=== PATIENT | female | born 1995 | race Caucasian/White ===

== ENCOUNTER 2018-02-17 02:07 | Observation (INO) | payer MEDICAID ==
--- NOTE | 2018-02-17 02:58 | ER Document Report ---
ED General - General Chief Complaint: Overdose Stated Complaint: POSSIBLE OVERDOSE Time Seen by Provider: 02/17/18 02:22 TRAVEL OUTSIDE OF THE [place] IN LAST 30 DAYS: No - HPI Notes: Patient is a 22-year-old female that presents to the emergency department for chief complaint of altered mental status. Patient was brought in by EMS after responding to Narcan. Her boyfriend called EMS when he found her unresponsive in the bed. He states that they "smoke something". Patient was apneic and cyanotic when EMS arrived. She did receive [id number] ventilation as well as 8 mg of intranasal Narcan. Patient woke up and began breathing after receiving Narcan. During my evaluation she is not cooperative. She will shake her head yes and no on occasion answer questions. She states she does not remember what happened. She denies using any drugs or history of drug use. She denies suicide attempt. Past Medical History: Reviewed in chart Past Surgical History: Reviewed in chart Social History: Reviewed in chart Family History: Reviewed and noncontributory for presenting illness Allergies: Reviewed, see documented allergy list. REVIEW OF SYSTEMS: Unable to obtain complete review of systems because of patient's current mental status and unwillingness to communicate PHYSICAL EXAMINATION: Vital signs reviewed, nursing noted reviewed. GENERAL: Somnolent, well-nourished and in no acute distress. HEAD: Atraumatic, normocephalic. EYES: Eyes appear normal, extraocular movements intact, sclera anicteric, conjunctiva are normal. ENT: nares patent, oropharynx clear without exudates. Moist mucous membranes. NECK: Normal range of motion, supple without lymphadenopathy LUNGS: Breath sounds clear to auscultation bilaterally and equal. No wheezes rales or rhonchi. HEART: Regular rate and rhythm without murmurs ABDOMEN: Soft, nontender, normoactive bowel sounds. No rebound, guarding, or rigidity. No masses appreciated. EXTREMITIES: Nontender, good range of motion, no pitting or edema. NEUROLOGICAL: No focal neurological deficits. Moves all extremities spontaneously Motor and sensory grossly intact on exam. PSYCH: Withdrawn, flat affect SKIN: Warm, Dry, normal turgor, no rashes or lesions noted on exposed skin - Related Data Allergies/Adverse Reactions: No Known Allergies Allergy (Verified 06/28/15 10:35) Past Medical History - Social History Smoking Status: Never Smoker Family History: Reviewed & Not Pertinent Pulmonary Medical History: Reports: Hx Asthma Psychiatric Medical History: Reports: Hx Bipolar Disorder, Hx Depression Past Surgical History: Reports: Hx Section - Immunizations Immunizations up to date: Yes Hx Diphtheria, Pertussis, Tetanus Vaccination: Yes Physical Exam - Vital signs Vitals: Pulse Ox 98 02/17/18 03:06 Course - Re-evaluation Re-evalutation: 02/17/18 02:58 Vitals reviewed. Nursing notes reviewed. 02/17/18 05:49 Patient reevaluated and has significantly improved. EMS reported her blood glucose is 349 however on a recheck she was 54. After receiving D50 patient's mentation did improve. She has a family history of diabetes but no personal history of diabetes. She denies taking any medications which may have lowered her blood glucose. Patient has a significant leukocytosis of 30. Chest x-ray is unremarkable. CT brain is normal. Her urinalysis shows a borderline infection and she will be given Rocephin for possible UTI. Urine culture was sent. Blood cultures have been obtained. She has a normal lactic acid. Patient is now admitting to smoking which she believed was marijuana. She received the drugs from her boyfriend who states he got them from someone new. She denies any known ingestion of opiates or history of opiate abuse. She denies any suicidal ideation or attempt. She has no complaints currently. Patient has continued to be tachycardic. She will be admitted to the hospital for her hypoglycemia, leukocytosis and mental status alterations. Case discussed with Dr. Mack who accepts admission. She is in agreement with this plan. Laboratory 02/17/18 02/17/18 02/17/18 03:12 03:12 03:22 WBC 30.1 H* RBC 4.29 Hgb 12.3 Hct 37.4 MCV 87 MCH 28.8 MCHC 33.0 RDW 13.5 Plt Count 289 Total Counted 100 Seg Neutrophils % Not Reportable Seg Neuts % (Manual) 91 H Lymphocytes % Not Reportable Lymphocytes % (Manual) 6 L Monocytes % Not Reportable Monocytes % (Manual) 3 Eosinophils % Not Reportable Eosinophils % (Manual) 0 Basophils % Not Reportable Basophils % (Manual) 0 Absolute Neutrophils Not Reportable Abs Neuts (Manual) 27.4 H Absolute Lymphocytes Not Reportable Abs Lymphs (Manual) 1.8 Absolute Monocytes Not Reportable Abs Monocytes (Manual) 0.9 Absolute Eosinophils Not Reportable Absolute Eos (Manual) 0.0 Absolute Basophils Not Reportable Abs Basophils (Manual) 0.0 Platelet Comment ADEQUATE RBC Morph Comment NORMO-CYTIC/CHROMIC Carbonic Acid HCO3/H2CO3 Ratio ABG pH ABG pCO2 ABG pO2 ABG HCO3 ABG Total CO2 ABG O2 Saturation ABG Base Excess FiO2 Sodium 141.0 Potassium 4.4 Chloride 105 Carbon Dioxide 27 Anion Gap 9 BUN 14 Creatinine 0.99 Est GFR ( Amer) > 60 Est GFR (Non-Af Amer) > 60 Glucose 98 POC Glucose Lactic Acid Calcium 8.6 Total Bilirubin 0.3 Direct Bilirubin 0.3 Neonat Total Bilirubin Not Reportable Neonat Direct Bilirubin Not Reportable Neonat Indirect Bili Not Reportable AST 51 H ALT 29 Alkaline Phosphatase 68 Total Protein 6.9 Albumin 4.0 Urine Color Urine Appearance Urine pH Ur Specific [place] Urine Protein Urine Glucose (UA) Urine Ketones Urine Blood Urine Nitrite Urine Bilirubin Urine Urobilinogen Ur Leukocyte Esterase Urine WBC (Auto) Urine RBC (Auto) U Hyaline Cast (Auto) Urine Bacteria (Auto) Squamous Epi Cells Auto Urine Mucus (Auto) Urine Ascorbic Acid Urine HCG, Qual Urine Opiates Screen UNCONFIRMED POSITIVE Urine Methadone Screen NEGATIVE Ur Barbiturates Screen NEGATIVE Ur Phencyclidine Scrn NEGATIVE Ur Amphetamines Screen NEGATIVE U Benzodiazepines Scrn NEGATIVE Urine Cocaine Screen NEGATIVE U Marijuana (THC) Screen NEGATIVE Serum Alcohol < 10 02/17/18 02/17/18 02/17/18 03:22 04:37 04:37 WBC RBC Hgb Hct MCV MCH MCHC RDW Plt Count Total Counted Seg Neutrophils % Seg Neuts % (Manual) Lymphocytes % Lymphocytes % (Manual) Monocytes % Monocytes % (Manual) Eosinophils % Eosinophils % (Manual) Basophils % Basophils % (Manual) Absolute Neutrophils Abs Neuts (Manual) Absolute Lymphocytes Abs Lymphs (Manual) Absolute Monocytes Abs Monocytes (Manual) Absolute Eosinophils Absolute Eos (Manual) Absolute Basophils Abs Basophils (Manual) Platelet Comment RBC Morph Comment Carbonic Acid 1.32 HCO3/H2CO3 Ratio 17:1 ABG pH 7.35 ABG pCO2 43.8 ABG pO2 85.9 ABG HCO3 23.7 ABG Total CO2 25.0 ABG O2 Saturation 96.1 ABG Base Excess -1.9 FiO2 ROOM AIR Sodium Potassium Chloride Carbon Dioxide Anion Gap BUN Creatinine Est GFR ( Amer) Est GFR (Non-Af Amer) Glucose POC Glucose Lactic Acid 1.2 Calcium Total Bilirubin Direct Bilirubin Neonat Total Bilirubin Neonat Direct Bilirubin Neonat Indirect Bili AST ALT Alkaline Phosphatase Total Protein Albumin Urine Color YELLOW Urine Appearance CLOUDY Urine pH 5.0 Ur Specific [place] 1.012 Urine Protein NEGATIVE Urine Glucose (UA) >=500 H Urine Ketones NEGATIVE Urine Blood NEGATIVE Urine Nitrite NEGATIVE Urine Bilirubin NEGATIVE Urine Urobilinogen NEGATIVE Ur Leukocyte Esterase TRACE H Urine WBC (Auto) 8 Urine RBC (Auto) 1 U Hyaline Cast (Auto) 4 Urine Bacteria (Auto) 1+ Squamous Epi Cells Auto 3 Urine Mucus (Auto) MANY Urine Ascorbic Acid NEGATIVE Urine HCG, Qual NEGATIVE Urine Opiates Screen Urine Methadone Screen Ur Barbiturates Screen Ur Phencyclidine Scrn Ur Amphetamines Screen U Benzodiazepines Scrn Urine Cocaine Screen U Marijuana (THC) Screen Serum Alcohol 02/17/18 04:48 WBC RBC Hgb Hct MCV MCH MCHC RDW Plt Count Total Counted Seg Neutrophils % Seg Neuts % (Manual) Lymphocytes % Lymphocytes % (Manual) Monocytes % Monocytes % (Manual) Eosinophils % Eosinophils % (Manual) Basophils % Basophils % (Manual) Absolute Neutrophils Abs Neuts (Manual) Absolute Lymphocytes Abs Lymphs (Manual) Absolute Monocytes Abs Monocytes (Manual) Absolute Eosinophils Absolute Eos (Manual) Absolute Basophils Abs Basophils (Manual) Platelet Comment RBC Morph Comment Carbonic Acid HCO3/H2CO3 Ratio ABG pH ABG pCO2 ABG pO2 ABG HCO3 ABG Total CO2 ABG O2 Saturation ABG Base Excess FiO2 Sodium Potassium Chloride Carbon Dioxide Anion Gap BUN Creatinine Est GFR ( Amer) Est GFR (Non-Af Amer) Glucose POC Glucose 59 L Lactic Acid Calcium Total Bilirubin Direct Bilirubin Neonat Total Bilirubin Neonat Direct Bilirubin Neonat Indirect Bili AST ALT Alkaline Phosphatase Total Protein Albumin Urine Color Urine Appearance Urine pH Ur Specific [place] Urine Protein Urine Glucose (UA) Urine Ketones Urine Blood Urine Nitrite Urine Bilirubin Urine Urobilinogen Ur Leukocyte Esterase Urine WBC (Auto) Urine RBC (Auto) U Hyaline Cast (Auto) Urine Bacteria (Auto) Squamous Epi Cells Auto Urine Mucus (Auto) Urine Ascorbic Acid Urine HCG, Qual Urine Opiates Screen Urine Methadone Screen Ur Barbiturates Screen Ur Phencyclidine Scrn Ur Amphetamines Screen U Benzodiazepines Scrn Urine Cocaine Screen U Marijuana (THC) Screen Serum Alcohol Chest X-Ray 02/17/18 02:41 IMPRESSION: Clear lungs. Head CT 02/17/18 02:41 IMPRESSION: No acute findings. - Vital Signs Vital signs: Temp Pulse Resp BP Pulse Ox 11 L 112/59 L 100 02/17/18 05:31 02/17/18 05:31 02/17/18 05:01 - Laboratory Result Diagrams: 02/17/18 03:12 02/17/18 03:12 Laboratory results interpreted by me: 02/17/18 02/17/18 02/17/18 03:12 03:12 03:22 WBC 30.1 H* Seg Neuts % (Manual) 91 H Lymphocytes % (Manual) 6 L Abs Neuts (Manual) 27.4 H POC Glucose AST 51 H Urine Glucose (UA) >=500 H Ur Leukocyte Esterase TRACE H 02/17/18 04:48 WBC Seg Neuts % (Manual) Lymphocytes % (Manual) Abs Neuts (Manual) POC Glucose 59 L AST Urine Glucose (UA) Ur Leukocyte Esterase Discharge - Discharge Clinical Impression: Hypoglycemia Opiate overdose Qualifiers: Encounter type: initial encounter Injury intent: accidental or unintentional Qualified Code(s): T40.601A - Poisoning by unspecified narcotics, accidental (unintentional), initial encounter Leukocytosis Qualifiers: Leukocytosis type: unspecified Qualified Code(s): D72.829 - Elevated white blood cell count, unspecified Altered mental status Qualifiers: Altered mental status type: transient alteration of awareness Qualified Code(s): R40.4 - Transient alteration of awareness Condition: Stable Disposition: ADMITTED OBSERVATION Admitting Provider: Hospitalist Unit Admitted: Telemetry
--- NOTE | 2018-02-17 03:15 | RADIOLOGY REPORT (SQ) ---
EXAM DESCRIPTION: CT HEAD WITHOUT IV CONTRAST COMPLETED DATE/TME: 02/17/2018 02:41 CLINICAL HISTORY: 22 years Female, confusion COMPARISON: None. TECHNIQUE: No contrast. Coronal and sagittal reformat. This exam was performed according to our departmental dose-optimization program, which includes automated exposure control, adjustment of the mA and/or kV according to patient size and/or use of iterative reconstruction technique. FINDINGS: No hemorrhage or infarct. No mass, mass effect, or midline shift. Mild bilateral maxillary mucosal thickening. Brain and extra-axial structures appear otherwise intact. IMPRESSION: No acute findings.
--- NOTE | 2018-02-17 03:16 | RADIOLOGY REPORT (SQ) ---
CLINICAL HISTORY: cough COMPARISON: None. 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 Lungs are clear without consolidation, atelectasis, mass or edema. There is no pleural effusion. There is no pneumothorax. There are no acute osseous findings. IMPRESSION: Clear lungs.
[2018-02-17 03:31] LABS: HEMATOCRIT 37.4 % (36.0-47.0); HEMOGLOBIN 12.3 g/dL (12.0-15.5); MEAN CORPUSCULAR HEMOGLOBIN 28.8 pg (27.0-33.4); MEAN CORPUSCULAR VOLUME 87 fl (80-97); PLATELET COUNT 289 10^3/uL (150-450); RED BLOOD COUNT 4.29 10^6/uL (3.72-5.28); RED CELL DISTRIBUTION WIDTH 13.5 % (11.5-14.0)
[2018-02-17 03:41] LABS: ABSOLUTE LYMPHOCYTES# (MANUAL) 1.8 10^3/uL (0.5-4.7); ABSOLUTE MONOCYTES # (MANUAL) 0.9 10^3/uL (0.1-1.4); ABSOLUTE NEUTROPHILS# (MANUAL) 27.4 10^3/uL (1.7-8.2); BASOPHILS % (MANUAL) 0 % (0-2); EOSINOPHILS % (MANUAL) 0 % (0-6); LYMPHOCYTES % (MANUAL) 6 % (13-45); MONOCYTES % (MANUAL) 3 % (3-13); PLATELET COMMENT ADEQUATE; RBC MORPHOLOGY COMMENT NORMO-CYTIC/CHROMIC; SEGMENTED NEUTROPHILS % (MAN) 91 % (42-78); TOTAL CELLS COUNTED 100
[2018-02-17] MEDS: NORMAL SALINE 1000 ML 1,000 ML IV PRN ×2 (04:25→04:26)
[2018-02-17 04:34] LABS: APPEARANCE,URINE CLOUDY; BILIRUBIN,URINE NEGATIVE (NEGATIVE); COLOR,URINE YELLOW; GLUCOSE, URINE >=500 mg/dL (NEGATIVE); KETONES,URINE NEGATIVE (NEGATIVE); LEUKOCYTE ESTERASE,URINE TRACE (NEGATIVE); NITRITE,URINE NEGATIVE (NEGATIVE); PROTEIN,URINE NEGATIVE (NEGATIVE); URINE SPECIFIC GRAVITY 1.012; UROBILINOGEN,URINE NEGATIVE mg/dL (<2.0)
[2018-02-17] MEDS ORDERED: DEXTROSE 50%-WATER 25 GM/50 ML DISP.SYRIN IV ONE (04:49)
[2018-02-17 04:55] LABS: ARTERIAL BLOOD BASE EXCESS -1.9 mmol/L; ARTERIAL BLOOD H2CO3 1.32 mmol/L (1.05-1.35); ARTERIAL BLOOD HCO3 23.7 mmol/L (20-24); ARTERIAL BLOOD O2 SATURATION 96.1 % (94-98); ARTERIAL BLOOD PCO2 43.8 mmHg (35-45); ARTERIAL BLOOD PH 7.35 (7.35-7.45); ARTERIAL BLOOD PO2 85.9 mmHg (80-100)
[2018-02-17 04:56] LABS: ARTERIAL BLOOD FIO2 ROOM AIR
[2018-02-17 05:26] LABS: URINE AMPHETAMINES SCREEN NEGATIVE; URINE BARBITURATES SCREEN NEGATIVE; URINE BENZODIAZEPINES SCREEN NEGATIVE; URINE COCAINE SCREEN NEGATIVE; URINE MARIJUANA (THC) SCREEN NEGATIVE; URINE METHADONE SCREEN NEGATIVE; URINE PHENCYCLIDINE SCREEN NEGATIVE
[2018-02-17 05:31] LABS: ANION GAP 9 (5-19)
[2018-02-17 05:32] LABS: ALANINE AMINOTRANSFERASE 29 U/L (9-52); ALCOHOL < 10 mg/dL (NONE DETECTED); ALKALINE PHOSPHATASE 68 U/L (38-126); ASPARTATE AMINO TRANSFERASE 51 U/L (14-36); BILIRUBIN,DIRECT 0.3 mg/dL (0.0-0.4); BILIRUBIN,TOTAL 0.3 mg/dL (0.2-1.3); BLOOD UREA NITROGEN 14 mg/dL (7-20); CALCIUM 8.6 mg/dL (8.4-10.2); CARBON DIOXIDE 27 mmol/L (22-30); CHLORIDE 105 mmol/L (98-107); GLUCOSE 98 mg/dL (75-110); POTASSIUM 4.4 mmol/L (3.6-5.0); TOTAL PROTEIN 6.9 g/dL (6.3-8.2)
[2018-02-17] MEDS ORDERED: CEFTRIAXONE INJ 1000 MG VIAL IV ONE (05:40)
[2018-02-17] MEDS ORDERED: IPRATROPIUM/ALBUTEROL 0.5-2.5 MG/3 ML AMPUL NEB PRN (05:50)
[2018-02-17] MEDS ORDERED: DEXTROSE 50%-WATER 25 GM/50 ML DISP.SYRIN IV PRN ×2 (05:50)
[2018-02-17] MEDS ORDERED: DEXTROSE 40% GEL 15 GM TUBE PO PRN ×2 (05:50)
[2018-02-17] MEDS ORDERED: GLUCAGON,HUMAN RECOMB 1 MG INJ IM PRN (05:50)
[2018-02-17] MEDS ORDERED: ACETAMINOPHEN 325 MG TABLET PO PRN (05:50)
[2018-02-17] MEDS ORDERED: NORMAL SALINE 1000 ML 1,000 ML IV SCH (06:00)
--- NOTE | 2018-02-17 06:41 | PDOC H&P ---
History of Present Illness Admission Date/PCP: 02/17/18 06:16 FREDDY BRAUN MD Patient complains of: Opiate overdose History of Present Illness: ANUJ MILLER is a 22 year old female with a history of asthma, depression without current medication presents with altered mental status after her boyfriend called EMS finding her unresponsive and cyanotic snorting an unknown substance. EMS administers 8 mg of intranasal Narcan and promptly regained consciousness and is uncooperative. She is brought to the emergency room for evaluation and initially denies drug use with exception to marijuana however now admits to snorting an unknown substance with recreational intentions. In the emergency room she is also found to have leukocytosis of 30,000 and hypoglycemia of 59. She receives IV Rocephin, 25 g of dextrose and referred to the hospitalist for admission. Patient denies decompensated depression, suicidal or homicidal ideation. 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 Past Medical History Pulmonary Medical History: Reports: Asthma Psychiatric Medical History: Reports: Bipolar Disorder, Depression Past Surgical History Past Surgical History: Reports: Section Social History Information Source: Patient Smoking Status: Never Smoker Frequency of Alcohol Use: None Drugs: Other - Opiate - Advance Directive Resuscitation Status: Full Code Family History Family History: COPD, Other - Depression and alcoholism Parental Family History Reviewed: Yes Children Family History Reviewed: Yes Sibling(s) Family History Reviewed.: Yes Medication/Allergy Home Medications: Vits96/Iron Fum/Folic [ Tablet] 1 tab PO DAILY 01/19/14 Ferrous Sulfate [Feosol 325 mg Tablet] 325 mg PO DAILY #30 tab 03/31/14 Ibuprofen [Motrin 800 mg Tablet] 800 mg PO Q6 #30 tablet 03/31/14 Oxycodone HCl/Acetaminophen [Percocet 5-325 mg Tablet] 2 tab PO Q4HP PRN #30 tablet 03/31/14 Hydrocodone/Acetaminophen [Bethel 5-325 mg Tablet] 1 - 2 tab PO Q6HP PRN #12 tablet 06/28/15 Naproxen 500 mg PO BIDP PRN #20 tablet 06/28/15 Allergies/Adverse Reactions: No Known Allergies Allergy (Verified 06/28/15 10:35) Review of Systems Constitutional: ABSENT: chills, fever(s), headache(s), weight gain, weight loss Eyes: ABSENT: visual disturbances Ears: ABSENT: hearing changes Cardiovascular: ABSENT: chest pain, dyspnea on exertion, edema, orthropnea, palpitations Respiratory: ABSENT: cough, hemoptysis Gastrointestinal: ABSENT: abdominal pain, constipation, diarrhea, hematemesis, hematochezia, nausea, vomiting Genitourinary: ABSENT: dysuria, hematuria Musculoskeletal: ABSENT: joint swelling Integumentary: ABSENT: rash, wounds Neurological: ABSENT: abnormal gait, abnormal speech, confusion, dizziness, focal weakness, syncope Psychiatric: ABSENT: anxiety, depression, homidical ideation, suicidal ideation Endocrine: ABSENT: cold intolerance, heat intolerance, polydipsia, polyuria Hematologic/Lymphatic: ABSENT: easy bleeding, easy bruising Physical Exam Vital Signs: Temp Pulse Resp BP Pulse Ox 11 L 112/59 L 100 02/17/18 05:31 02/17/18 05:31 02/17/18 05:01 Intake & Output 02/15/18 02/16/18 02/17/18 11:59 11:59 11:59 Intake Total 17 Balance 17 General appearance: PRESENT: no acute distress, well-developed, well-nourished Head exam: PRESENT: atraumatic, normocephalic Eye exam: PRESENT: conjunctiva pink, EOMI, PERRLA. ABSENT: scleral icterus Ear exam: PRESENT: normal external ear exam Mouth exam: PRESENT: moist, tongue midline Neck exam: ABSENT: carotid bruit, JVD, lymphadenopathy, thyromegaly Respiratory exam: PRESENT: clear to auscultation sabino. ABSENT: rales, rhonchi, wheezes Cardiovascular exam: PRESENT: RRR. ABSENT: diastolic murmur, rubs, systolic murmur Pulses: PRESENT: normal dorsalis pedis pul Vascular exam: PRESENT: normal capillary refill GI/Abdominal exam: PRESENT: normal bowel sounds, soft. ABSENT: distended, guarding, mass, organolmegaly, rebound, tenderness Rectal exam: PRESENT: deferred Extremities exam: PRESENT: full ROM. ABSENT: calf tenderness, clubbing, pedal edema Neurological exam: PRESENT: alert, awake, oriented to person, oriented to place, oriented to time, oriented to situation, CN II-XII grossly intact. ABSENT: motor sensory deficit Psychiatric exam: PRESENT: appropriate affect, normal mood. ABSENT: homicidal ideation, suicidal ideation Skin exam: PRESENT: dry, intact, warm. ABSENT: cyanosis, rash Results Laboratory Results: 02/17/18 03:12 02/17/18 03:12 02/17/18 02/17/18 02/17/18 03:12 03:12 03:22 WBC 30.1 H* RBC 4.29 Hgb 12.3 Hct 37.4 MCV 87 MCH 28.8 MCHC 33.0 RDW 13.5 Plt Count 289 Seg Neutrophils % Not Reportable Lymphocytes % Not Reportable Monocytes % Not Reportable Eosinophils % Not Reportable Basophils % Not Reportable Absolute Neutrophils Not Reportable Absolute Lymphocytes Not Reportable Absolute Monocytes Not Reportable Absolute Eosinophils Not Reportable Absolute Basophils Not Reportable Carbonic Acid HCO3/H2CO3 Ratio ABG pH ABG pCO2 ABG pO2 ABG HCO3 ABG O2 Saturation ABG Base Excess FiO2 Sodium 141.0 Potassium 4.4 Chloride 105 Carbon Dioxide 27 Anion Gap 9 BUN 14 Creatinine 0.99 Est GFR ( Amer) > 60 Est GFR (Non-Af Amer) > 60 Glucose 98 Lactic Acid Calcium 8.6 Total Bilirubin 0.3 AST 51 H ALT 29 Alkaline Phosphatase 68 Total Protein 6.9 Albumin 4.0 Urine Color YELLOW Urine Appearance CLOUDY Urine pH 5.0 Ur Specific [place] 1.012 Urine Protein NEGATIVE Urine Glucose (UA) >=500 H Urine Ketones NEGATIVE Urine Blood NEGATIVE Urine Nitrite NEGATIVE Ur Leukocyte Esterase TRACE H Urine WBC (Auto) 8 Urine RBC (Auto) 1 02/17/18 02/17/18 04:37 04:37 WBC RBC Hgb Hct MCV MCH MCHC RDW Plt Count Seg Neutrophils % Lymphocytes % Monocytes % Eosinophils % Basophils % Absolute Neutrophils Absolute Lymphocytes Absolute Monocytes Absolute Eosinophils Absolute Basophils Carbonic Acid 1.32 HCO3/H2CO3 Ratio 17:1 ABG pH 7.35 ABG pCO2 43.8 ABG pO2 85.9 ABG HCO3 23.7 ABG O2 Saturation 96.1 ABG Base Excess -1.9 FiO2 ROOM AIR Sodium Potassium Chloride Carbon Dioxide Anion Gap BUN Creatinine Est GFR ( Amer) Est GFR (Non-Af Amer) Glucose Lactic Acid 1.2 Calcium Total Bilirubin AST ALT Alkaline Phosphatase Total Protein Albumin Urine Color Urine Appearance Urine pH Ur Specific [place] Urine Protein Urine Glucose (UA) Urine Ketones Urine Blood Urine Nitrite Ur Leukocyte Esterase Urine WBC (Auto) Urine RBC (Auto) Impressions: Chest X-Ray 02/17/18 02:41 IMPRESSION: Clear lungs. Head CT 02/17/18 02:41 IMPRESSION: No acute findings. Assessment & Plan - Diagnosis (1) Opiate overdose Qualifiers: Encounter type: initial encounter Injury intent: accidental or unintention al Qualified Code(s): T40.601A - Poisoning by unspecified narcotics, acci dental (unintentional), initial encounter Is this a current diagnosis for this admission?: Yes Plan: Accidental overdose of recreational opiate. Telemetry monitoring supportive care, as needed Narcan, mental health consult (2) Altered mental status Qualifiers: Altered mental status type: transient alteration of awareness Qualified Code(s): R40.4 - Transient alteration of awareness Plan: Secondary to #1, resolved (3) Hypoglycemia Is this a current diagnosis for this admission?: Yes Plan: Likely poor p.o. intake, hypoglycemic protocol initiated (4) Leukocytosis Qualifiers: Leukocytosis type: unspecified Qualified Code(s): D72.829 - Elevated white blood cell count, unspecified Is this a current diagnosis for this admission?: Yes Plan: Likely stress response, received 1 g of Rocephin IV in the emergency room. Will hold antibiotics pending fever or positive urine culture. - Time Time Spent: 50 to 70 Minutes - Inpatient Certification Medical Necessity: Need Close Monitoring Due to Risk of Patient Decompensation
[2018-02-17 06:58] LABS: CREATINE KINASE MB 2.54 ng/mL (<4.55)
[2018-02-17 07:02] LABS: TROPONIN I 0.694 ng/mL
[2018-02-17] MEDS: HEPARIN SOD (PORCINE) 5,000 UNIT/ML 1 ML SYRINGE SUBCUT SCH ×3 (11:33→21:29)
--- NOTE | 2018-02-17 15:29 | Progress Note ---
Provider Note Provider Note: patient admitted after midnight, seen on rounds this afternoon. please see H&P for full A&P patient states she feels much better - states she did heroin- snorted - states she it was her first time- states she will never do it again. has no acute complaints at this time. leukocytosis noted- likely reactive- will get repeat CBC and ESR. will follow up
[2018-02-17 15:33] LABS: ABSOLUTE BASOPHILS # (AUTO) 0.1 10^3/uL (0.0-0.2); ABSOLUTE EOSINOPHILS # (AUTO) 0.1 10^3/uL (0.0-0.6); ABSOLUTE LYMPHOCYTES (AUTO) 2.3 10^3/uL (0.5-4.7); ABSOLUTE MONOCYTES (AUTO) 0.6 10^3/uL (0.1-1.4); ABSOLUTE NEUT (AUTO) 8.2 10^3/uL (1.7-8.2); BASOPHILS % (AUTO) 0.4 % (0-2); EOSINOPHILS % (AUTO) 0.6 % (0-6); HEMATOCRIT 33.4 % (36.0-47.0); HEMOGLOBIN 11.3 g/dL (12.0-15.5); LYMPHOCYTES % (AUTO) 20.8 % (13-45); MEAN CORPUSCULAR HEMOGLOBIN 29.1 pg (27.0-33.4); MEAN CORPUSCULAR HGB CONC 33.7 g/dL (32.0-36.0); MEAN CORPUSCULAR VOLUME 86 fl (80-97); MONOCYTES % (AUTO) 5.3 % (3-13); PLATELET COUNT 247 10^3/uL (150-450); RED BLOOD COUNT 3.87 10^6/uL (3.72-5.28); RED CELL DISTRIBUTION WIDTH 13.3 % (11.5-14.0); SEGMENTED NEUTROPHILS % (AUTO) 72.9 % (42-78); TOTAL CELLS COUNTED % (AUTO) 100 %; WHITE BLOOD COUNT 11.3 10^3/uL (4.0-10.5)
[2018-02-17 16:06] LABS: ERYTHROCYTE SEDIMENTATION RATE 15 mm/hr (0-20)
--- NOTE | 2018-02-17 17:19 | PSYCHOLOGICAL NOTE ---
Psych Note - Psych Note Date seen by psych provider: 02/17/18 Time seen by psych provider: 11:30 Psych Note: Reason for consult: overdose ANUJ MILLER is a 22 year old female with a history of asthma, depression without current medication presents with altered mental status after her boyfriend called EMS finding her unresponsive and cyanotic snorting an unknown substance. Patient disclosed that she does have a previous diagnosis of bipolar however is not been on medication for many years. She discloses that she accidentally overdosed trying heroin for the first time. She reports that she engaged in self-harm behaviors in seventh grade however denies that she actually ever cut; "it was very superficial L think I ever even broke the skin." She denies any attempts at self-harm since then. She discloses that she has used marijuana in the past in addition to pain pills that have been prescribed to her however is never tried heroin in her thought that she would try it; "kind of like a one-time thing but I am never doing that again." Patient admits that her son was at home the time that she accidentally overdosed however the child was sleeping and there was a sober adult in the home i.e. patient's mother. Patient is alert and orientated to person, place, time and circumstance. Mood is euthymic with congruent affect. Patient denies suicidal homicidal ideation. delusions are absent behaviors congruent with an intact reality based presentation i.e. organized and linear thought process. Eye contact is well- maintained. Conversational speech was within normal rate, tone and prosody. Intellectual abilities appear to be within the average range. Attention and concentration are good. Insight, judgment, impulse control are fair. No medication recommendations at this time Diagnosis Bipolar disorder; unspecified per history provided by patient R/O substance abuse impression/plan: Patient is cleared from acute psychiatric services. Patient does not meet IVC criteria per [place] GS 120 2C. Patient denies thoughts of wanting to harm herself or others and is not currently demonstrating behaviors indicating psychosis. Patient reported accidental overdose when trying heroin for the first time. She denies any other drug use previously only marijuana, denies need of detox or substance use treatment. Patient currently lives with her mother and son. Patient is recommended for outpatient mental health services for a more in depth substance abuse assessment to determine treatment level needs. Dr. Ron was consulted and care management this patient; attending physicians in agreement with recommendations and disposition.
[2018-02-18] MEDS: HEPARIN SOD (PORCINE) 5,000 UNIT/ML 1 ML SYRINGE SUBCUT SCH (06:27)
[2018-02-18 06:39] LABS: ABSOLUTE EOSINOPHILS # (AUTO) 0.2 10^3/uL (0.0-0.6); ABSOLUTE LYMPHOCYTES (AUTO) 3.9 10^3/uL (0.5-4.7); ABSOLUTE MONOCYTES (AUTO) 0.5 10^3/uL (0.1-1.4); ABSOLUTE NEUT (AUTO) 3.9 10^3/uL (1.7-8.2); BASOPHILS % (AUTO) 0.5 % (0-2); EOSINOPHILS % (AUTO) 2.5 % (0-6); HEMATOCRIT 30.6 % (36.0-47.0); HEMOGLOBIN 10.4 g/dL (12.0-15.5); LYMPHOCYTES % (AUTO) 45.7 % (13-45); MEAN CORPUSCULAR HEMOGLOBIN 29.5 pg (27.0-33.4); MEAN CORPUSCULAR HGB CONC 33.9 g/dL (32.0-36.0); MEAN CORPUSCULAR VOLUME 87 fl (80-97); MONOCYTES % (AUTO) 5.9 % (3-13); PLATELET COUNT 204 10^3/uL (150-450); RED BLOOD COUNT 3.51 10^6/uL (3.72-5.28); RED CELL DISTRIBUTION WIDTH 13.2 % (11.5-14.0); SEGMENTED NEUTROPHILS % (AUTO) 45.4 % (42-78); TOTAL CELLS COUNTED % (AUTO) 100 %; WHITE BLOOD COUNT 8.6 10^3/uL (4.0-10.5)
--- NOTE | 2018-02-18 09:52 | Physician Advisory Note ---
Physician Advisor ProgressNote .: Pursuant to the plan for [facility], I have reviewed the medical record for this patient. Physician Advisor Statement: Please consider documenting, if you agree: 1. "Toxic encephalopathy with associated obtundation due to accidental OD heroin" vs. "toxic-metabolic encephalopathy w/assoc'd obtundation due to accidental OD heroin + hypoglycemia" 2. "Acute REspiratory Failure, evidenced by apnea/cyanosis/obtundation for EMS & hypoventilation/bradypnea with continued somnolence initially in hospital" Status: Medicaid pt w/accidental OD heroin, associated w/Ac Resp Failure/cessation of breathing w/associated cyanosis & obtundation, prominent leukocytosis, tachycardia, bradypnea, hypoglycemia (after hyperglycemia in 300s for EMS with no prior dx DM), ongoing/recurrent tachycardia through the PM 1/6, ? of possible UTI w/prominent leukocytosis - attending continuing watching leukocytosis & glcs & mental status closely for potential further worsening through >24 hrs. TAchycardia still present even at midnight, needing to be kept >24 hrs to clarify sufficient stability for d/c. - Sounds appropriate for change to Inpatient status in this case. Thanks! CK
--- NOTE | 2018-02-18 10:36 | PDOC DISCHARGE SUMMARY ---
General - Admit/Disc Date/PCP Admission Date/Primary Care Provider: 02/17/18 06:16 FREDDY BRAUN MD Discharge Date: 02/18/18 - Discharge Diagnosis (1) UTI (urinary tract infection) Is this a current diagnosis for this admission?: Yes (2) Altered mental status Is this a current diagnosis for this admission?: Yes (3) Leukocytosis Is this a current diagnosis for this admission?: Yes (4) Opiate overdose Is this a current diagnosis for this admission?: Yes - Additional Information Resuscitation Status: Full Code Discharge Diet: As Tolerated Discharge Activity: Activity As Tolerated Prescriptions: Cephalexin Monohydrate [Keflex 500 mg Capsule] 500 mg PO TID #9 capsule Home Medications: Cetirizine HCl [Zyrtec 10 mg Tablet] 1 tab PO DAILY PRN 02/17/18 Ondansetron [Zofran Odt 4 mg Tablet] 8 mg PO Q6HP PRN 02/17/18 Polyethylene Glycol 3350 [Miralax Powder 17 gm/Packet] 1 packet PO DAILY PRN 02/17/18 Cephalexin Monohydrate [Keflex 500 mg Capsule] 500 mg PO TID #9 capsule 02/18/18 History of Present Illness History of Present Illness: ANUJ MILLER is a 22 year old female Hospital Course Hospital Course: after admission she was placed in IMCU and monitored overnight. her WBC trended down immediately with hydration. likely her WBC was reactive. she was alert and oriented within the same day of admission later in the evening. she admitted to doing heroin- snorted- states it was her first time. she had no acute complaints - denied chest pain, SOB, abdominal pain, n/v or dizziness. this morning she's requesting immediate discharge. wants to go home. her UCx is growing GNRs. discussed about staying until cultures return but she would like to take antibiotics and go home. will start her on keflex and discharge. will call her if keflex is resistant to her organism- she's aware that we will not call her if keflex is sensitive. today she has no UTI symptoms. she has no acute complaints at all. Physical Exam Vital Signs: Temp Pulse Resp BP Pulse Ox 97.9 F 69 12 100/60 100 02/18/18 07:47 02/18/18 07:47 02/18/18 07:47 02/18/18 07:47 02/18/18 07:47 Intake & Output 02/17/18 02/18/18 02/19/18 06:59 06:59 06:59 Intake Total 17 1722 Output Total 800 Balance 17 922 Weight 147 lb 4.301 oz General appearance: PRESENT: no acute distress Head exam: PRESENT: atraumatic, normocephalic Eye exam: PRESENT: EOMI, PERRLA. ABSENT: scleral icterus Ear exam: PRESENT: normal external ear exam Mouth exam: PRESENT: tongue midline Neck exam: ABSENT: tracheal deviation Respiratory exam: PRESENT: clear to auscultation sabino, symmetrical Cardiovascular exam: PRESENT: +S1, +S2 Pulses: PRESENT: +2 pedal pulses bilateral GI/Abdominal exam: PRESENT: normal bowel sounds, soft. ABSENT: tenderness Extremities exam: ABSENT: pedal edema Neurological exam: PRESENT: alert, awake, oriented to person, oriented to place, oriented to time, CN II-XII grossly intact Skin exam: PRESENT: dry, warm Results Laboratory Results: 02/18/18 05:28 02/17/18 03:12 02/17/18 02/18/18 15:26 05:28 WBC 11.3 H 8.6 RBC 3.87 3.51 L Hgb 11.3 L 10.4 L Hct 33.4 L 30.6 L MCV 86 87 MCH 29.1 29.5 MCHC 33.7 33.9 RDW 13.3 13.2 Plt Count 247 204 Seg Neutrophils % 72.9 45.4 Lymphocytes % 20.8 45.7 H Monocytes % 5.3 5.9 Eosinophils % 0.6 2.5 Basophils % 0.4 0.5 Absolute Neutrophils 8.2 3.9 Absolute Lymphocytes 2.3 3.9 Absolute Monocytes 0.6 0.5 Absolute Eosinophils 0.1 0.2 Absolute Basophils 0.1 0.0 02/17/18 02/17/18 03:12 03:12 Creatine Kinase 113 CK-MB (CK-2) 2.54 Troponin I 0.694 Impressions: Chest X-Ray 02/17/18 02:41 IMPRESSION: Clear lungs. Head CT 02/17/18 02:41 IMPRESSION: No acute findings. Qualifiers - * PATIENT BEING DISCHARGED WITH ANY OF THE FOLLOWING DIAGNOSIS: No VTE patient discharged on overlapping Therapy?: No Plan Time Spent: Less than 30 Minutes
[2018-02-18 10:40] VITALS: BP 118/70
[2018-02-18 14:17] LABS: WHITE BLOOD COUNT 30.1 10^3/uL (4.0-10.5)
[2018-02-19 14:26] LABS: PATH REVIEW PATHOLOGIST REVIEWED
== END 2018-02-18 11:31 | disposition home or self-care (01) ==
LOC: ER 02:07 → EH 06:16 → 3S 08:00
PROVIDERS: ADMIT Internal Medicine; ATTEND Internal Medicine
DX: T40.1X1A Poisoning by heroin, accidental (unintentional), initial encounter (principal); R41.82 Altered mental status, unspecified; N39.0 Urinary tract infection, site not specified; D72.829 Elevated white blood cell count, unspecified; E16.2 Hypoglycemia, unspecified; R06.81 Apnea, not elsewhere classified; R23.0 Cyanosis; R00.0 Tachycardia, unspecified; Z79.899 Other long term (current) drug therapy; Z83.3 Family history of diabetes mellitus; Z23 Encounter for immunization
CPT/HCPCS: 99285; 96361; 96374; 36415 ×2; 87040; 87086; 82553; 82962 ×2; 80307 ×2; 82803; 82550; 85025 ×2; 85652; 81025; 87088; 80053; 81001; 84484; 87186; 83605; 71045; 70450; 90686; G0378 ×3; J1644; J3490; J7030